=== PATIENT | male | born 1950 | race Caucasian/White ===

== ENCOUNTER 2017-12-06 09:23 | Observation (INO) | payer BC, MEDICARE ==
[2017-12-06 10:02] LABS: #Eosinphils 0.4 thou/uL (0.0-0.7); #Lymphocytes 2.6 thou/uL (1.20-3.40); #Monocytes 0.9 thou/uL (0.11-0.59); #Neutrophils 7.2 thou/uL (1.40-6.50); %Eosinophils 3.2 % (0.0-10.0); %Lymphocytes 23.7 % (21.0-51.0); %Monocytes 7.8 % (0.0-10.0); %Neutrophils 65.2 % (42.0-75.0); Mean Corpuscular HGB CONC 32.5 g/dL (32.0-36.0); Mean Corpuscular Hemoglobin 26.3 pg (27.0-31.0); Mean Corpuscular Volume 81.1 fl (80.0-94.0); Mean Platelet Volume 7.8 fL (7.4-10.4); Platelet Count 232 thou/uL (130-400); RBC Distribution Width 16.2 % (11.5-14.5); Red Blood Cell (RBC) Count 4.17 mill/uL (4.70-6.10); White Blood Cell (WBC) Count 11.1 thou/uL (4.8-10.8)
[2017-12-06 10:24] LABS: ALT (SGPT) 11 U/L (8-55); AST (SGOT) 12 U/L (5-34); Albumin 3.7 g/dL (3.4-4.8); Alkaline Phosphatase 115 U/L (40-150); Anion Gap 14 mmol/L (10-20); BUN (Urea Nitrogen) 28 mg/dL (8.4-25.7); Bilirubin, Total 0.2 mg/dL (0.2-1.2); CK (CPK) 58 U/L (30-200); Calc. Creatinine Clearance 0 mL/min (70-130); Calcium 8.5 mg/dL (7.8-10.44); Carbon Dioxide 21 mmol/L (23-31); Chloride 108 mmol/L (98-107); Estimated GFR-MDRD 37; Globulin 3.2 g/dL (2.4-3.5); Glucose 94 mg/dL (80-115); Lipase 105 U/L (8-78); Potassium 3.4 mmol/L (3.5-5.1); Protein, Total 6.9 g/dL (5.8-8.1); Sodium 140 mmol/L (136-145)
[2017-12-06 10:27] LABS: CKMB 2.5 ng/mL (0-6.6); Troponin I 0.026 ng/mL (< 0.028)
[2017-12-06] MEDS ORDERED: Ondansetron HCl/PF 4 MG/2 ML Vial ONE (10:52)
[2017-12-06] MEDS ORDERED: Nitroglycerin 2% Ointment 1 INCH/1 GM Packet ONE (10:52)
--- NOTE | 2017-12-06 11:03 | RAD ---
CHEST 1 VIEW: Date: 12/06/17 HISTORY: Chest pain. COMPARISON: 12/06/17, earlier exam same date. FINDINGS: Cardiac silhouette is magnified and upper limits of normal in size. Pulmonary vasculature is unremark able. Mediastinum is midline with postoperative changes and a single lead left subclavian cardiac def ibrillator. Pulmonary vasculature is within normal limits on this exam. Lungs remain hyperinflated. IMPRESSION: COPD. POS: [facility]
[2017-12-06] MEDS ORDERED: Acetaminophen 325 MG TAB PO PRN (11:15)
[2017-12-06] MEDS ORDERED: Bisacodyl 5 MG TAB PO PRN (11:15)
[2017-12-06] MEDS ORDERED: Acetaminophen 650 MG Suppository PR PRN (11:15)
[2017-12-06] MEDS ORDERED: Nitroglycerin 0.4 MG TAB (25 Tab Bottle) PO PRN (11:15)
[2017-12-06 12:56] VITALS: BMI 20.7
[2017-12-06] MEDS ORDERED: Potassium Chloride 20 MEQ/100 ML PREMIX BAG IVPB SCH (13:00)
--- NOTE | 2017-12-06 13:20 | HP ---
PRIMARY CARE PROVIDER: Devin Castorena D.O. CHIEF COMPLAINT: Chest pain. HISTORY OF PRESENT ILLNESS: Mr. Wallace is a pleasant 67-year-old gentleman, who was seen at [facility] on 12/06/2017. He reports that over the last couple of days, he has had on and off chest discomfort. He describes i t as a sensation of heaviness in the retrosternal region, nonradiating, worse with exertion, improved with nitroglycerin, accompanied by shortness of breath. He denies any sweating or lightheadedness. He denies any diaphoresis. He presented at [facility] earlier today and reportedly left against medical advice. He then went home, but continued to have chest discomfort. He therefore came to the emergency room at [facility]. REVIEW OF SYSTEMS: The following complete review of systems was negative, unless otherwise mentioned in the HPI or below: Constitutional: Weight loss or gain, ability to conduct usual activities. Skin: Rash, itching. Eyes: Double vision, pain. ENT/Mouth: Nose bleeding, neck stiffness, pain, tenderness. Cardiovascular: Palpitations, dyspnea on exertion, orthopnea. Respiratory: Shortness of breath, wheezing, cough, hemoptysis, fever or night sweats. Gastrointestinal: Poor appetite, abdominal pain, heartburn, nausea, vomiting, constipation, or diarr hea. Genitourinary: Urgency, frequency, dysuria, nocturia. Musculoskeletal: Pain, swelling. Neurologic/Psychiatric: Anxiety, depression. Allergy/Immunologic: Skin rash, bleeding tendency. PAST MEDICAL HISTORY: Significant for coronary artery disease, status post coronary artery bypass gr aft in 1993 with a repeat coronary artery bypass graft and multiple stents placed including stents in his graft. He is followed by a sheepskin pickler in [place]. He also has a history of hypertension; divert iculosis; peripheral neuropathy; chronic pain syndrome; chronic kidney disease, stage 3; chronic syst olic heart failure and peripheral vascular disease with stent placement. PAST SURGICAL HISTORY: Significant for cardiac catheterization with multiple stent placement, hong ry artery bypass graft, tonsillectomy and defibrillator placement. ALLERGIES: TRAMADOL. CURRENT MEDICATIONS: These need to be clarified, but the patient in the past was on ProAir HFA, aspi rin, Lipitor, Coreg, Plavix, colchicine, furosemide, lisinopril, and nitroglycerin p.r.n. FAMILY HISTORY: Positive for diabetes. SOCIAL HISTORY: The patient is an ex-smoker. He denies alcohol and recreational drug use. PHYSICAL EXAMINATION: GENERAL: Mr. Wallace is awake and alert, not in acute distress. VITAL SIGNS: Blood pressure is 130/74, pulse is 65, he is breathing at rate of 20 and saturating 98% on room air. He is afebrile. EYES: No scleral icterus, no conjunctival pallor. ENT: Moist mucosal membranes, no oropharyngeal erythema or exudates. NECK: Supple, nontender, normal range of movement. Trachea is midline. RESPIRATORY: Accessory muscles of breathing are not active. Chest wall movements are symmetric bila terally. LUNGS: Clear to auscultation without wheeze, rhonchi or crepitations. CARDIOVASCULAR: S1 and S2 are heard, regular. LUNGS: Peripheral pulses palpable. No carotid bruit, no pericardial rub. ABDOMEN: Soft, nontender, bowel sounds are heard, no hepatomegaly, no splenomegaly. NEUROLOGIC: Cranial nerves II through XII intact, deep tendon reflexes are 2+. MUSCULOSKELETAL: Power is 5/5 in all 4 extremities. Normal range of movement at all major extremity joints. SKIN: No rashes or subcutaneous nodules. LYMPHATIC: No cervical lymphadenopathy. PSYCHIATRIC: Normal mood, normal affect. The patient is oriented to person, place, and time. LABORATORY DATA: Mr. Wallace labs and investigations were reviewed. I reviewed his electrocardiogra m, which shows normal sinus rhythm, no ST changes to suggest an acute coronary syndrome. I also revi ewed his chest x-ray, which does not show any pulmonary infiltrates. He has leukocytosis with 11,100 white cells, of which 65% are neutrophils, normocytic anemia with hemoglobin 11, normal platelet cou nt, normal sodium, decreased potassium of 3.4, elevated blood urea nitrogen of 28, elevated creatinin e of 1.82, last known creatinine 1.43 on 06/25/2016, normal liver function tests, normal troponin I, elevated BNP of 229.6 and elevated lipase of 105. ASSESSMENT AND PLAN: Mr. Wallace is a pleasant 67-year-old gentleman, who was seen at [facility] on 12/06/2017. His problem list includes: 1. Chest pain: Mr. Wallace is presenting with chest pain. He is currently chest pain free, and rep orts that the worst pain he had was 1/10. He will be admitted to the hospital on observation status for further management, including telemetry monitoring and stress test. 2. Chronic kidney disease: His creatinine today is 1.82. It was 1.95 yesterday and 1.43 in 2016. He will be advised to follow up with his primary care provider for management of chronic kidney disea se. 3. Elevated lipase: I note that his lipase was elevated in 2013 as well. He also does not have any abdominal discomfort at this time. The liver function tests are normal as well. We will advise him to follow up with his primary care provider for rechecking. 4. Hypokalemia: Replace potassium. 5. Hypertension: Monitor vital signs, titrate antihypertensives as needed. 6. Peripheral neuropathy: Continue home medications once clarified. 7. Chronic systolic heart failure: Appears to be stable. Many thanks for allowing me to participate in Mr. Wallace' care. Please feel free to contact me with any questions or concerns. LEVEL OF RISK: High. LEVEL OF COMPLEXITY: High.
[2017-12-06 13:26] LABS: Troponin I 0.032 ng/mL (< 0.028)
[2017-12-06] MEDS ORDERED: Potassium Chloride 20 MEQ in Premix Bag 1 BAG IVPB SCH (14:00)
[2017-12-06] MEDS ORDERED: Nitroglycerin 0.4 MG TAB (25 Tab Bottle) SL SCH (15:15)
[2017-12-06] MEDS ORDERED: Potassium Chloride 20 MEQ TAB PO SCH (16:00)
[2017-12-06 16:15] LABS: Troponin I 0.024 ng/mL (< 0.028)
[2017-12-06] MEDS ORDERED: Carvedilol 25 MG TAB PO SCH (17:00)
[2017-12-06] MEDS ORDERED: Potassium Chloride 10 MEQ TAB PO SCH (17:00)
[2017-12-06] MEDS: Furosemide 20 MG TAB PO SCH ×2 (17:52→18:28)
[2017-12-06] MEDS ORDERED: Melatonin 3 MG TAB PO PRN (18:40)
[2017-12-06 20:05] VITALS: BP 134/88; TEMP 98.1
[2017-12-06] MEDS ORDERED: Atorvastatin Calcium 40 MG TAB PO SCH (21:00)
[2017-12-06] MEDS ORDERED: METHadone HCl 10 MG TAB PO SCH (21:00)
[2017-12-06] MEDS ORDERED: Sodium Chloride 0.65% Nasal 44 ML BOT EA NARE PRN (21:21)
[2017-12-06] MEDS ORDERED: Oxymetazoline HCl 0.05% ( 15 ML ) NASAL PRN (21:22)
[2017-12-06] MEDS ORDERED: Zolpidem Tartrate 5 MG TAB PO PRN (21:25)
--- NOTE | 2017-12-06 21:30 | PDOC.EVN ---
Event Note - Event Note Event Note: paged re: pt pain and anticipated insomnia no further narcotic regimen at this point in time as per primary team insomnia - prn jeffrey rick, would not recommend taking simultaneously or re -dosing d/w nsg
[2017-12-07] MEDS ORDERED: LINACLOTIDE 290 MCG PO SCH (07:30)
[2017-12-07] MEDS ORDERED: diphenhydrAMINE 12.5 MG/5 ML UDCUP PO SCH (21:00)
--- NOTE | 2017-12-07 22:37 | DIS ---
PRIMARY CARE PHYSICIAN: Dr. Devin Castorena. DATE OF ADMISSION: 12/06/2017 The patient left against medical advice on 12/07/2017. HOSPITAL COURSE: Mr. Wallace is a pleasant 67-year-old gentleman, who was admitted to [facility] on 12/06/2017 for chest pain. Please refer to my history and physical note from 12/06/2017 for further information. He was being monitored on telemetry. He was awaiting stress carolyn t. After midnight of 12/06/2017, Mr. Wallace left against medical advice.
--- NOTE | 2018-01-16 13:59 | EKG ---
Test Reason : Blood Pressure : / mmHG Vent. Rate : 072 BPM Atrial Rate : 072 BPM P-R Int : 184 ms QRS Dur : 128 ms QT Int : 446 ms P-R-T Axes : 000 -21 068 degrees QTc Int : 488 ms Normal sinus rhythm Left bundle branch block Abnormal ECG Confirmed by RACHAEL JORDAN, LINDA ([id number]), tape editor HAILEY RIVERA ([id number]) on 01/16/2018 1:58:57 PM Referred By: Confirmed By:LINDA CANO MD
== END 2017-12-07 01:46 | disposition left against medical advice (07) ==
LOC: ERS 09:23 → 2SW 10:55
PROVIDERS: ADMIT Internal Medicine; ATTEND Internal Medicine
DX: R07.2 Precordial pain (principal); I25.10 Atherosclerotic heart disease of native coronary artery without angina pectoris; G89.4 Chronic pain syndrome; I13.0 Hypertensive heart and chronic kidney disease with heart failure and stage 1 through stage 4 chronic kidney disease, or unspecified chronic kidney disease; N18.3 Chronic kidney disease, stage 3 (moderate); I50.22 Chronic systolic (congestive) heart failure; I73.9 Peripheral vascular disease, unspecified; G62.9 Polyneuropathy, unspecified; E87.6 Hypokalemia; Z53.21 Procedure and treatment not carried out due to patient leaving prior to being seen by health care provider; Z87.891 Personal history of nicotine dependence; Z95.5 Presence of coronary angioplasty implant and graft; Z95.1 Presence of aortocoronary bypass graft; Z95.810 Presence of automatic (implantable) cardiac defibrillator; Z88.5 Allergy status to narcotic agent; Z88.1 Allergy status to other antibiotic agents; Z79.82 Long term (current) use of aspirin; Z79.01 Long term (current) use of anticoagulants; Z79.899 Other long term (current) drug therapy
CPT/HCPCS: 36415; 71045; 83690; 83880; 93005; 96374; G0378; J2405; J3480; J7050

== ENCOUNTER 2018-03-22 06:05 | Inpatient (IN) | payer BC, MEDICARE ==
[2018-03-22] MEDS ORDERED: Nitroglycerin 0.4 MG TAB (25 Tab Bottle) ONE (06:35)
[2018-03-22] MEDS ORDERED: Morphine 4 MG/ML VIAL ONE (06:50)
[2018-03-22] MEDS ORDERED: Nitroglycerin 2% Ointment 1 INCH/1 GM Packet ONE (06:50)
[2018-03-22 06:57] LABS: #Eosinphils 0.3 thou/uL (0.0-0.7); #Lymphocytes 2.4 thou/uL (1.20-3.40); #Monocytes 0.7 thou/uL (0.11-0.59); %Basophils 0.4 % (0.0-1.0); %Eosinophils 3.2 % (0.0-10.0); %Lymphocytes 28.5 % (21.0-51.0); %Monocytes 8.6 % (0.0-10.0); %Neutrophils 59.3 % (42.0-75.0); Hemoglobin 9.7 g/dL (14.0-18.0); Mean Corpuscular HGB CONC 31.2 g/dL (32.0-36.0); Mean Corpuscular Hemoglobin 25.2 pg (27.0-31.0); Mean Corpuscular Volume 80.8 fL (78.0-98.0); Mean Platelet Volume 7.5 fL (7.4-10.4); Platelet Count 257 thou/uL (130-400); RBC Distribution Width 17.7 % (11.5-14.5); Red Blood Cell (RBC) Count 3.83 mill/uL (4.70-6.10); White Blood Cell (WBC) Count 8.4 thou/uL (4.8-10.8)
[2018-03-22 07:17] LABS: ALT (SGPT) 12 U/L (8-55); AST (SGOT) 12 U/L (5-34); Albumin 3.3 g/dL (3.4-4.8); Alkaline Phosphatase 90 U/L (40-150); Anion Gap 12 mmol/L (10-20); BUN (Urea Nitrogen) 26 mg/dL (8.4-25.7); Bilirubin, Total Less than 0.2 mg/dL (0.2-1.2); Calc. Creatinine Clearance 0 mL/min (70-130); Calcium 8.5 mg/dL (7.8-10.44); Carbon Dioxide 24 mmol/L (23-31); Chloride 108 mmol/L (98-107); Estimated GFR-MDRD 46; Globulin 2.9 g/dL (2.4-3.5); Glucose 89 mg/dL (80-115); Potassium 4.1 mmol/L (3.5-5.1); Protein, Total 6.2 g/dL (5.8-8.1); Sodium 140 mmol/L (136-145)
[2018-03-22 07:21] LABS: CKMB 1.9 ng/mL (0-6.6); Troponin I Less than 0.010 ng/mL (< 0.028)
--- NOTE | 2018-03-22 07:58 | CT ---
CTA AORTIC DISSECTION PROTOCOL OF THE CHEST AND ABDOMEN: INDICATION: Chest pain. COMPARISON: Prior CTA of the chest dated 10/28/2007. FINDINGS: No suspicious pulmonary nodule, confluent airspace opacity, or pleural effusion is evident. There is postsurgical change from a prior CABG. There is prominent coronary artery and thoracic aorta calcif ications. There is a prominent mural thrombus seen within the weinstein of the distal abdominal aorta. There is aneurysmal dilatation of the distal abdominal aorta below the level of the renal arteries me asuring up 3.2 cm. No hemodynamically significant stenosis is grossly evident involving the abdomina l aorta. There is an endograft stent within the SMA. The celiac is patent. There is moderate ather osclerotic irregularity involving origin and proximal aspect of the right renal artery. There is mil d to moderate atherosclerotic irregularity involving the origin of the left renal artery. The ADONIS is occluded at its origin and reconstitutes along its proximal segment. 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 No focal hepatic lesion is evident. There are calcified granuloma of the spleen. Pancreas and adren al glands appear within normal limits. There are small cysts involving the inferior pole of the righ t kidney. There are renovascular calcifications seen within the right renal sinus. No acute osseous abnormality is evident. IMPRESSION: 1. No evidence of acute aortic dissection or occlusion. There is mild aneurysmal dilatation of the infrarenal abdominal aorta measuring up to 3.2 cm. There is mild aneurysmal dilatation of both commo n iliac arteries. There is moderate narrowing of the proximal renal arteries bilaterally. 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 2. Right renal cyst. 4. Findings of prior granulomatous disease. 5. Extensive vascular calcifications of the coronary arteries post coronary artery bypass graft [facility]. POS: [facility]
[2018-03-22] MEDS ORDERED: Pantoprazole 40 MG VIAL ONE ×2 (07:59)
[2018-03-22] MEDS ORDERED: Nitroglycerin 50 MG/250 ML BOT 250 ML IVPB SCH (08:30)
[2018-03-22] MEDS ORDERED: Enoxaparin Sodium 60 MG/0.6 ML SYRINGE ONE (09:12)
[2018-03-22] MEDS ORDERED: Fentanyl 100 MCG/2 ML VIAL ONE (09:17)
[2018-03-22 10:17] LABS: Troponin I 0.014 ng/mL (< 0.028)
[2018-03-22] MEDS ORDERED: Sodium Chloride 0.9% 1,000 ML IV SCH (11:45)
[2018-03-22 11:58] VITALS: BMI 22.4
[2018-03-22 12:01] VITALS: TEMP 97.7
[2018-03-22] MEDS ORDERED: Acetaminophen 325 MG TAB PO PRN (12:14)
[2018-03-22] MEDS ORDERED: Nitroglycerin 0.4 MG TAB (25 Tab Bottle) PO PRN (12:14)
[2018-03-22] MEDS ORDERED: Morphine 4 MG/ML VIAL SLOW IVP PRN (12:14)
[2018-03-22] MEDS ORDERED: Milk Of Magnesia 30 ML UDCUP PO PRN (12:14)
--- NOTE | 2018-03-22 12:21 | HP ---
PRIMARY CARE PHYSICIAN: Devin Castorena D.O. MARKETING PRODUCTION COORDINATOR: Dr. Nelson. CHIEF COMPLAINT: Chest pain. HISTORY OF PRESENT ILLNESS: Mr. Wallace is a pleasant 68-year-old gentleman that has a history of co ronary artery disease. He has had a coronary artery bypass graft as well as multiple stents and redo CABG. He was in his usual state of health until yesterday. Actually last night, he says he was joão kened from sleep with severe pain in his chest. He rated it about 5/10. He says it was radiating to his left arm and up the middle part of his back and into his jaw. He says it was similar to the juli n he has had previously with heart disease. He also says the pain has been off and on in the last we ek. It is usually not in relationship to exertion or it can be brought on by just minimal exertion. He does not have any nausea, vomiting, or shortness of breath associated with it and he tried taking several nitroglycerins at home without any relief of his pain and for this reason, he came to the em ergency room for evaluation. The patient denies any PND or orthopnea. He denies any palpitations an d he says that his ICD has not fired that he knows of. REVIEW OF SYSTEMS: All systems were reviewed and are negative except for that mentioned in the histo ry of present illness. PAST MEDICAL HISTORY: Significant for coronary artery disease, hypertension. He has a history of di verticulosis and he says that he had a severe diverticular bleed about a year and a half ago in 2017 in hospital in [place] where he had to receive 8 units of blood. He also describes having an EGD and ca psule study as well. The patient also has chronic kidney disease stage 4, chronic systolic heart jory lure, peripheral vascular disease, status post stent. PAST SURGICAL HISTORY: He has had coronary artery bypass grafting as well as multiple stents, a redo CABG, tonsillectomy and a defibrillator placed. ALLERGIES: TRAMADOL, ROCEPHIN and CYMBALTA which causes hives and rashes. FAMILY HISTORY: Significant for diabetes and heart disease in his father. SOCIAL HISTORY: He is a former smoker. He denies any alcohol use. He is and is a FULL CODE . MEDICATIONS: Include carvedilol 25 mg twice daily, furosemide 40 mg twice a day, promethazine 25 mg q.8, indomethacin 50 mg t.i.d. as needed, Klor-Con 10 mEq 2 tablets daily, Lipitor 80 mg at bedtime, Linzess 290 mcg daily, morphine sulfate extended release 20 mg twice a day, gabapentin 300 mg t.i.d., prednisone 20 mg daily, isosorbide mononitrate extended release daily, trazodone 100 mg at bedtime. PHYSICAL EXAMINATION: GENERAL: He is alert and oriented. He appears to be in no acute distress. He is well-developed, we ll-nourished. VITAL SIGNS: Blood pressure was 138/75, heart rate 77, respiratory rate of 13, and he is afebrile. HEENT: Pupils are equal, round, and reactive. Extraocular muscles are intact. His sclerae are anic teric. Throat; no erythema, no exudates. NECK: There is no adenopathy, no bruits. LUNGS: Clear to auscultation. I did not appreciate any wheezing or rales. CARDIOVASCULAR: He had a normal S1 and S2, no S3 or S4. He did not have any murmurs, clicks or rubs . ABDOMEN: Obese, it is soft. He had some mild midabdominal tenderness. There was no rebound, no gua rding, no appreciable organomegaly. EXTREMITIES: He did have some little mild edema, 1+ pedal edema, palpable dorsalis pedis pulses bila terally. He did have some curved and ingrown toenails and callus formation on the first base of the metatarsal, but otherwise no other skin lesions. LABORATORY DATA AND IMAGING DATA: White blood cell count 8.4, hemoglobin 9.7, hematocrit is 31, plat elet count was 257. Sodium 140, potassium 4.1, chloride is 108, CO2 is 24, BUN of 26, creatinine 1.5 3, glucose is 89. Troponin was less than 0.014. He had an EKG done in the emergency room in which h sugey had left bundle branch block. Apparently, he had had a previous EKG with no change. ASSESSMENT AND PLAN: This is a pleasant 68-year-old gentleman that presents to the emergency room wi th ongoing chest pain, which has been off and on for the past week. He has a significant history of coronary artery disease in which he has had 2 separate CABG procedures as well as multiple stents loen tegan. He is at high risk for an acute coronary syndrome. For this reason, he is being placed in the ICU for unstable angina. He has been placed on a nitroglycerin drip. We will also add morphine as n eeded for pain control. Continue aspirin therapy as well as a beta leslie and then we will obtain manuel smith recommendations from Dr. Dumont with Cardiology. Acute on chronic anemia. His blood count is a bit lower than what has been in the past at 9.7, it lo oks like he tends to run low all the time, but he has had hemoglobin as high as 13, it sounds like he has a history of diverticular bleed in the past. He admits to no recent bleed that he is aware of. He denies any dark stools. He denies any hematochezia or any vomiting. We will keep a close eye on his hemoglobin and hematocrit as well as put him on Protonix IV and Gastroenterology will be consult ed as a precaution. We will also try to obtain his records from [place] in 2017 in which he reports hav e had a colonoscopy and what sounds like a capsule study and possibly an EGD at that time. Otherwise , further recommendations are to follow.
[2018-03-22 13:11] LABS: Troponin I Less than 0.010 ng/mL (< 0.028)
[2018-03-22] MEDS ORDERED: Nitroglycerin 2% Ointment 1 INCH/1 GM Packet TOP SCH (14:00)
[2018-03-22] MEDS ORDERED: ISOVUE-370 76%-LOCM 1 ML ONE (14:55)
--- NOTE | 2018-03-22 15:45 | CON ---
DATE OF CONSULTATION: 03/22/2018 SERVICE: Pulmonary Medicine. INTERVAL HISTORY: The patient is a 68-year-old white male with past medical history significant for coronary artery disease. He is in his usual state of health until about 11:00 to midnight of last ni ght. He woke up from sleep and he had a chest discomfort. This happens from time to time. He took his nitro. The pain went from a 6 down to 3. Smoldering did not go away. As such, he presented to the Emergency Department. He denies any current fevers, chills, nausea, vomiting, shortness of breat h or chest discomfort. He is otherwise in his usual state of health. One of his big complaints is t hat it was very hot in his house. PAST MEDICAL HISTORY: 1. Coronary artery disease. 2. Hypertension. 3. Diverticulosis. 4. Chronic kidney disease stage 4. 5. Chronic systolic heart failure. 6. Peripheral vascular disease. PAST SURGICAL HISTORY: 1. Coronary artery bypass graft. 2. Percutaneous coronary intervention, multiple. 3. Redo coronary artery bypass graft. 4. Tonsillectomy. 5. AICD placement. FAMILY HISTORY: Noncontributory. SOCIAL HISTORY: He denies alcohol, tobacco or illicit drug use. He is a former smoker and has a gre ater than [id number] history of smoking. He denies having any other exposure to chemicals, dusts, asbestos or tuberculosis. ALLERGIES: TRAMADOL, ROCEPHIN, CYMBALTA. MEDICATIONS: List of his inpatient medications were reviewed. No specific updates were made. REVIEW OF SYSTEMS: General, head, ears, eyes, nose, throat, cardiovascular, respiratory, GI, , mus culoskeletal, neurologic and skin is negative except as mentioned in the HPI. PHYSICAL EXAMINATION: VITAL SIGNS: Afebrile, pulse 99, blood pressure 135/65, respirations 16, saturation 97% on room air. GENERAL: The patient is awake and alert, in no apparent distress. LUNGS: Excellent air entry. There is a prolonged expiratory phase, but no wheezing, rhonchi, or scrap hoist operator ckles are appreciated. HEART: Normal rate, regular. ABDOMEN: Soft, nontender, nondistended. Bowel sounds are positive. MUSCULOSKELETAL: No cyanosis or clubbing. No pitting in the bilateral lower extremities. NEUROLOGIC: Grossly nonfocal. LABORATORY DATA: WBC 8.4, hemoglobin 9.7, platelets 257,000. Basic metabolic profile, liver functio n studies are essentially unremarkable. His creatinine is 1.53, but is actually quite good for him. Troponins are negative x3. IMAGING: CT dissection protocol demonstrates no evidence of dissection. Mild aneurysmal dilatation of infrarenal abdominal aorta measuring 3.2 cm. Right renal cyst, findings of prior granulomatous di sease are present. There is extensive vascular calcifications. ASSESSMENT: 1. Coronary artery disease. 2. Chest pain. 3. Abdominal aortic aneurysm, measuring 3.2 cm. PLAN: The patient will be transitioned to the telemetry unit. Pulmonary and Critical Care will cont inue to follow along if he remains in this location, but I will sign off once he goes to the floor. Please call with additional questions or concerns moving forward.
[2018-03-22] MEDS ORDERED: Carvedilol 25 MG TAB PO SCH (17:00)
[2018-03-22] MEDS ORDERED: Atorvastatin Calcium 40 MG TAB PO SCH (21:00)
[2018-03-22] MEDS ORDERED: Pantoprazole 40 MG VIAL IVP SCH (21:00)
[2018-03-22] MEDS ORDERED: Docusate 100 MG CAP PO SCH (21:00)
[2018-03-22] MEDS ORDERED: Prevnar 13-Val Conj/PF 0.5 ML SYRINGE IM ONE (21:00)
[2018-03-23] MEDS ORDERED: Aspirin 325 MG TAB PO SCH (09:00)
== END 2018-03-22 13:46 | disposition left against medical advice (07) | DRG 303 ==
LOC: ERS 06:05 → ERHOLD 09:06 → CCU 11:17
PROVIDERS: ADMIT Internal Medicine; ATTEND Internal Medicine
DX: I25.110 Atherosclerotic heart disease of native coronary artery with unstable angina pectoris (principal); I13.0 Hypertensive heart and chronic kidney disease with heart failure and stage 1 through stage 4 chronic kidney disease, or unspecified chronic kidney disease; N18.4 Chronic kidney disease, stage 4 (severe); I50.22 Chronic systolic (congestive) heart failure; E78.5 Hyperlipidemia, unspecified; K57.90 Diverticulosis of intestine, part unspecified, without perforation or abscess without bleeding; I44.7 Left bundle-branch block, unspecified; D63.1 Anemia in chronic kidney disease; I71.4 Abdominal aortic aneurysm, without rupture; F12.11 Cannabis abuse, in remission; I73.9 Peripheral vascular disease, unspecified; Z53.21 Procedure and treatment not carried out due to patient leaving prior to being seen by health care provider; Z95.1 Presence of aortocoronary bypass graft; Z95.5 Presence of coronary angioplasty implant and graft; Z95.820 Peripheral vascular angioplasty status with implants and grafts; Z95.810 Presence of automatic (implantable) cardiac defibrillator; Z87.891 Personal history of nicotine dependence; Z88.5 Allergy status to narcotic agent; Z88.8 Allergy status to other drugs, medicaments and biological substances; Z79.899 Other long term (current) drug therapy; Z79.82 Long term (current) use of aspirin; Z79.52 Long term (current) use of systemic steroids
CPT/HCPCS: 36415; 71275; 86850; 86870; 86900; 86901; 86905; 86922; 93005; 94760; C9113; J1650; J2270; J3010

== ENCOUNTER 2020-03-17 16:58 | Emergency (ER) | payer BC, MEDICARE ==
--- NOTE | 2020-03-17 18:22 | RAD ---
FOUR VIEWS LEFT KNEE: 03/17/20 COMPARISON: None. HISTORY: Trip and fall with left knee pain. FINDINGS: Four views of the left knee shows no evidence of acute fracture or dislocation. Moderate soft tissue swelling is seen. No knee effusion is seen. Mild degenerative changes are seen in the patellofemoral compartment. Vascular calcifications are present. IMPRESSION: Mild degenerative changes of the left knee without acute osseous abnormality. POS: [facility]
== END 2020-03-17 19:11 | disposition home or self-care (01) ==
LOC: ERS 16:58
DX: M25.562 Pain in left knee (principal); E78.5 Hyperlipidemia, unspecified; I10 Essential (primary) hypertension; I25.2 Old myocardial infarction; F17.200 Nicotine dependence, unspecified, uncomplicated